=== PATIENT | female | born 1995 | race Caucasian/White ===

== ENCOUNTER 2016-09-09 12:37 | Emergency (ER) | payer OTHER ==
[~2016-09-09] VITALS: Ht 162.5 cm; Wt 50.3 kg
[~2016-09-09 12:37] MED LIST: AMOXICILLIN500 MG; ATARAX25 MG PO; CIPROFLOXACIN500 MG PO; CLEOCIN150 MG PO; KEFLEX500 MG PO; MACROBID100 M1 PO; MOTRIN400 MG PO; MOTRIN600 MG PO; MOTRIN800 MG PO; MULTIPLE VITAMI1 T17 PO; NKHM PO; PERCOCET 325 MG1 TA2 PO; PREDNICOT20 MG PO; PRENATAL1 TA7 PO; ULTRAM50 MG PO; VICODIN 500 MG-1 TAB PO; ZOFRAN ODT4 MG SL
[2016-09-09 12:42] VITALS: BP 122/80
== END 2016-09-09 14:03 | disposition home or self-care (01) ==
LOC: ED 12:37
DX: S70.02XA Contusion of left hip, initial encounter (principal); S80.02XA Contusion of left knee, initial encounter; F17.200 Nicotine dependence, unspecified, uncomplicated; Z88.8 Allergy status to other drugs, medicaments and biological substances; W18.39XA Other fall on same level, initial encounter; Y93.89 Activity, other specified; Y92.89 Other specified places as the place of occurrence of the external cause; Y99.8 Other external cause status

== ENCOUNTER 2016-09-22 09:52 | Emergency (ER) | payer OTHER ==
[~2016-09-22] VITALS: Ht 165.1 cm; Wt 52.2 kg
[2016-09-22 10:00] VITALS: BP 129/78
[2016-09-22] MEDS ORDERED: NEURONTIN300 MG PO (10:01)
[2016-09-22] MEDS ORDERED: BACTRIM DS 8001 TAB PO (10:43)
[2016-09-22] MEDS ORDERED: Motrin,Rufen800 MG PO (10:43)
== END 2016-09-22 11:09 | disposition home or self-care (01) ==
LOC: ED 09:52
DX: T24.201A Burn of second degree of unspecified site of right lower limb, except ankle and foot, initial encounter (principal); L03.115 Cellulitis of right lower limb; F17.200 Nicotine dependence, unspecified, uncomplicated; Z88.8 Allergy status to other drugs, medicaments and biological substances; X17.XXXA Contact with hot engines, machinery and tools, initial encounter; Y93.89 Activity, other specified; Y92.89 Other specified places as the place of occurrence of the external cause; Y99.9 Unspecified external cause status

== ENCOUNTER 2018-02-16 10:37 | Emergency (ER) | payer OTHER ==
[~2018-02-16] VITALS: Ht 165.1 cm; Wt 52.2 kg
[~2018-02-16 10:37] MED LIST changes: +BACTRIM DS 8001 TAB PO; +Motrin,Rufen800 MG PO; +NEURONTIN300 MG PO
[2018-02-16 10:39] VITALS: BP 113/67
== END 2018-02-16 12:12 | disposition home or self-care (01) ==
LOC: ED 10:37
DX: S63.502A Unspecified sprain of left wrist, initial encounter (principal); S63.92XA Sprain of unspecified part of left wrist and hand, initial encounter; F17.200 Nicotine dependence, unspecified, uncomplicated; Z88.8 Allergy status to other drugs, medicaments and biological substances; Z79.899 Other long term (current) drug therapy; W22.8XXA Striking against or struck by other objects, initial encounter; Y93.89 Activity, other specified; Y92.89 Other specified places as the place of occurrence of the external cause; Y99.8 Other external cause status

== ENCOUNTER 2019-01-04 10:35 | Emergency (ER) | payer OTHER ==
[~2019-01-04] VITALS: Wt 54.4 kg
[2019-01-04 10:38] VITALS: BP 110/70
[2019-01-04] MEDS ORDERED: ZYRTEC10 M3 PO (10:47)
[2019-01-04] MEDS ORDERED: CLARITIN10 MG PO (10:47)
[2019-01-04 11:49] LABS: BASO # 0.1 10*3/uL (0.0-0.1); BASO % 0.8 % (0.0-1.0); EOS # 0.5 10*3/uL (0.0-0.4); EOS % 4.1 % (1.0-4.0); HEMATOCRIT 40.8 % (37.0-47.0); HEMOGLOBIN 13.5 g/dl (12.0-16.0); LYMPH # 2.7 10*3/uL (1.3-4.4); LYMPH % 24.1 % (27.0-41.0); MEAN CELL VOLUME 96.7 fl (81.0-99.0); MEAN CORPUSCULAR HGB CONC 33.1 g/dl (33.0-37.0); MEAN PLATELET VOLUME 9.9 fl (9.6-12.3); MONO % 8.5 % (3.0-9.0); NEUT # 7.1 10*3/uL (2.3-7.9); NEUT % 62.1 % (47.0-73.0); PLATELET COUNT AUTOMATED 248 10*3/uL (130-400); RED BLOOD COUNT 4.22 10*6/uL (4.10-5.10); RED CELL DISTRI WIDTH 13.6 % (0-14.5); WHITE BLOOD COUNT 11.4 10*3/uL (4.8-10.8)
[2019-01-04 11:59] LABS: INTERNATIONAL NORM RATIO 0.9 (2.0-3.5)
[2019-01-04 12:03] LABS: ALBUMIN 3.6 gm/dl (3.1-4.5); ALKALINE PHOSPHATASE 82 U/L (45-117); BUN 8 mg/dl (7-24); CHLORIDE 108 mmol/L (98-107); CREATININE 0.83 mg/dL (0.55-1.02); POTASSIUM 4.1 mmol/L (3.5-5.1); SGOT/AST 8 IU/L (3-35); SGPT/ALT 22 U/L (12-78); SODIUM 139 mmol/L (136-145); TOTAL PROTEIN 6.5 gm/dL (6.4-8.2)
== END 2019-01-04 13:37 | disposition home or self-care (01) ==
LOC: ED 10:35
PROVIDERS: Nurse Practitioner Family
DX: S39.012A Strain of muscle, fascia and tendon of lower back, initial encounter (principal); S09.90XA Unspecified injury of head, initial encounter; H53.8 Other visual disturbances; R42 Dizziness and giddiness; F17.200 Nicotine dependence, unspecified, uncomplicated; Z88.8 Allergy status to other drugs, medicaments and biological substances; Z79.899 Other long term (current) drug therapy; W01.198A Fall on same level from slipping, tripping and stumbling with subsequent striking against other object, initial encounter; Y93.01 Activity, walking, marching and hiking; Y92.480 Sidewalk as the place of occurrence of the external cause; Y99.8 Other external cause status

== ENCOUNTER 2020-12-05 09:29 | Emergency (ER) | payer OTHER ==
[~2020-12-05] VITALS: Wt 68.0 kg
[~2020-12-05 09:29] MED LIST changes: +CLARITIN10 MG PO; +ZYRTEC10 M3 PO
[2020-12-05 09:37] VITALS: BP 127/75
[2020-12-05] MEDS ORDERED: PREDNISONE50 MG PO (11:20)
[2020-12-05] MEDS ORDERED: Fioricet 325 MG1 TAB PO (11:20)
== END 2020-12-05 11:28 | disposition home or self-care (01) ==
LOC: ED 09:29
DX: R51.9 Headache, unspecified (principal); Z88.6 Allergy status to analgesic agent; Z88.8 Allergy status to other drugs, medicaments and biological substances; Z79.899 Other long term (current) drug therapy; F17.200 Nicotine dependence, unspecified, uncomplicated

== ENCOUNTER 2020-12-17 10:24 | Emergency (ER) | payer OTHER ==
[~2020-12-17] VITALS: Wt 68.0 kg
[~2020-12-17 10:24] MED LIST changes: +Fioricet 325 MG1 TAB PO; +PREDNISONE50 MG PO
[2020-12-17 10:38] VITALS: BP 132/76
== END 2020-12-17 12:41 | disposition left against medical advice (07) ==
LOC: ED 10:24
DX: R21 Rash and other nonspecific skin eruption (principal); R51.9 Headache, unspecified; Z88.8 Allergy status to other drugs, medicaments and biological substances; Z79.899 Other long term (current) drug therapy

== ENCOUNTER 2020-12-23 21:43 | Emergency (ER) | payer OTHER ==
[~2020-12-23] VITALS: Ht 162.5 cm; Wt 68.0 kg
[2020-12-23 21:58] VITALS: BP 139/86
[2020-12-23] MEDS ORDERED: CEPHALEXIN500 M1 PO (22:34)
== END 2020-12-23 22:45 | disposition home or self-care (01) ==
LOC: ED 21:43
DX: R21 Rash and other nonspecific skin eruption (principal); Z88.6 Allergy status to analgesic agent; Z88.8 Allergy status to other drugs, medicaments and biological substances; Z79.899 Other long term (current) drug therapy

== ENCOUNTER → 2021-01-31 | Outpatient (CLI) | payer OTHER ==
[~2021-01-31] MED LIST changes: +CEPHALEXIN500 M1 PO
== END | disposition home or self-care (01) ==
LOC: COVID19 16:39
PROVIDERS: ATTEND Internal Medicine
DX: Z11.52 Encounter for screening for COVID-19 (principal)

== ENCOUNTER 2021-03-20 18:11 | Emergency (ER) | payer OTHER ==
[~2021-03-20] VITALS: Ht 165.1 cm; Wt 68.0 kg
[2021-03-20] MEDS ORDERED: CEPHALEXIN500 M1 PO (19:42)
[2021-03-20 19:57] VITALS: BP 126/82
== END 2021-03-20 19:59 | disposition home or self-care (01) ==
LOC: ED 18:11
DX: L03.116 Cellulitis of left lower limb (principal)

== ENCOUNTER 2021-03-28 06:18 | Emergency (ER) | payer OTHER ==
[~2021-03-28] VITALS: Ht 165.1 cm; Wt 68.0 kg
[2021-03-28 06:43] VITALS: BP 123/74
== END 2021-03-28 07:40 | disposition home or self-care (01) ==
LOC: ED 06:18
DX: F45.8 Other somatoform disorders (principal); Z20.822 Contact with and (suspected) exposure to COVID-19; Z88.6 Allergy status to analgesic agent; Z88.8 Allergy status to other drugs, medicaments and biological substances; Z79.899 Other long term (current) drug therapy

== ENCOUNTER 2021-04-15 19:23 | Emergency (ER) | payer OTHER ==
[2021-04-15 19:40] VITALS: BP 111/76
[2021-04-15] MEDS ORDERED: DOXEPIN HCL10 MG PO (19:41)
[2021-04-15] MEDS ORDERED: LAMICTAL100 MG PO (19:42)
[2021-04-15] MEDS ORDERED: GEODON60 MG PO (19:42)
[2021-04-15] MEDS ORDERED: CATAPRES-TTS 10.1 MG T (19:42)
== END 2021-04-15 20:20 | disposition left against medical advice (07) ==
LOC: ED 19:23
DX: R42 Dizziness and giddiness (principal); R11.0 Nausea; Z88.6 Allergy status to analgesic agent; Z88.8 Allergy status to other drugs, medicaments and biological substances; Z79.899 Other long term (current) drug therapy

== ENCOUNTER → 2021-07-16 | Outpatient (CLI) | payer OTHER ==
[~2021-07-16] MED LIST changes: +CATAPRES-TTS 10.1 MG T; +DOXEPIN HCL10 MG PO; +GEODON60 MG PO; +LAMICTAL100 MG PO
[2021-07-16 08:55] VITALS: BP 115/71
== END | disposition home or self-care (01) ==
LOC: INJECTION 08:30
PROVIDERS: ATTEND Internal Medicine
DX: N76.0 Acute vaginitis (principal)

== ENCOUNTER → 2021-10-22 | Outpatient (CLI) | payer OTHER ==
[2021-10-22 12:46] LABS: ALKALINE PHOSPHATASE 94 U/L (45-117); BUN 6 mg/dl (7-24); CHLORIDE 109 mmol/L (98-107); CREATININE 0.88 mg/dL (0.55-1.02); FREE T4 1.14 ng/dl (0.76-1.46); POTASSIUM 3.6 mmol/L (3.5-5.1); SGOT/AST 12 IU/L (3-35); SGPT/ALT 14 U/L (12-78); SODIUM 140 mmol/L (136-145); TOTAL PROTEIN 7.2 gm/dL (6.4-8.2)
[2021-10-22 12:52] LABS: THYROID STIM HORMONE (HS) 0.209 uIU/ml (0.358-4.75)
== END | disposition home or self-care (01) ==
LOC: LAB 12:11
PROVIDERS: ATTEND Internal Medicine
DX: R20.0 Anesthesia of skin (principal)

== ENCOUNTER 2021-11-17 12:39 | Emergency (ER) | payer OTHER ==
[~2021-11-17] VITALS: Wt 70.8 kg
[~2021-11-17 12:39] MED LIST changes: -CATAPRES-TTS 10.1 MG T; +CLONIDINE HCL0.2 MG PO; -GEODON60 MG PO; +GEODON80 MG PO; -LAMICTAL100 MG PO; +LAMICTAL200 MG PO
[2021-11-17 12:44] VITALS: BP 130/85
[2021-11-17 17:00] LABS: BASO # 0.1 10*3/uL (0.0-0.1); BASO % 0.6 % (0.0-1.0); EOS # 0.1 10*3/uL (0.0-0.4); EOS % 0.4 % (1.0-4.0); LYMPH # 3.5 10*3/uL (1.3-4.4); LYMPH % 21.9 % (27.0-41.0); MEAN CELL VOLUME 92.3 fl (81.0-99.0); MEAN CORPUSCULAR HGB 30.9 pg (27.0-31.0); MEAN CORPUSCULAR HGB CONC 33.5 g/dl (33.0-37.0); MEAN PLATELET VOLUME 9.5 fl (9.6-12.3); MONO # 1.2 10*3/uL (0.1-1.0); MONO % 7.4 % (3.0-9.0); NEUT # 11.2 10*3/uL (2.3-7.9); NEUT % 69.2 % (47.0-73.0); PLATELET COUNT AUTOMATED 476 10*3/uL (130-400); RED BLOOD COUNT 4.66 10*6/uL (4.10-5.10); RED CELL DISTRI WIDTH 13.2 % (0-14.5); WHITE BLOOD COUNT 16.1 10*3/uL (4.8-10.8)
[2021-11-17 17:18] LABS: ALKALINE PHOSPHATASE 90 U/L (45-117); BUN 10 mg/dl (7-24); CHLORIDE 105 mmol/L (98-107); CREATININE 0.85 mg/dL (0.55-1.02); POTASSIUM 3.4 mmol/L (3.5-5.1); SGOT/AST 16 IU/L (3-35); SGPT/ALT 29 U/L (12-78); SODIUM 137 mmol/L (136-145); TOTAL PROTEIN 7.2 gm/dL (6.4-8.2)
[2021-11-17] MEDS ORDERED: MEDROL DOSEPAK4 MG PO ×2 (17:27)
== END 2021-11-17 17:47 | disposition home or self-care (01) ==
LOC: ED 12:39
PROVIDERS: Physician Assistant
DX: R51.9 Headache, unspecified (principal); Z79.899 Other long term (current) drug therapy; Z91.040 Latex allergy status; Z88.6 Allergy status to analgesic agent; Z88.8 Allergy status to other drugs, medicaments and biological substances

== ENCOUNTER 2021-11-25 10:05 | Emergency (ER) | payer OTHER ==
[~2021-11-25] VITALS: Ht 165.1 cm; Wt 71.2 kg
[~2021-11-25 10:05] MED LIST changes: +MEDROL DOSEPAK4 MG PO
[2021-11-25 10:12] VITALS: BP 135/79
== END 2021-11-25 11:10 | disposition home or self-care (01) ==
LOC: ED 10:05
DX: M79.605 Pain in left leg (principal); M79.604 Pain in right leg; M79.672 Pain in left foot; M79.671 Pain in right foot; Z79.899 Other long term (current) drug therapy; Z91.040 Latex allergy status; Z88.6 Allergy status to analgesic agent; Z88.8 Allergy status to other drugs, medicaments and biological substances

== ENCOUNTER → 2022-04-06 | Outpatient (CLI) | payer OTHER ==
[2022-04-06 11:06] LABS: BASO % 0.6 % (0.0-1.0); EOS # 0.1 10*3/uL (0.0-0.4); HEMATOCRIT 45.2 % (37.0-47.0); LYMPH # 3.9 10*3/uL (1.3-4.4); LYMPH % 54.7 % (27.0-41.0); MEAN CELL VOLUME 89.2 fl (81.0-99.0); MEAN CORPUSCULAR HGB CONC 33.6 g/dl (33.0-37.0); MEAN PLATELET VOLUME 10.6 fl (9.6-12.3); MONO # 0.4 10*3/uL (0.1-1.0); NEUT # 2.7 10*3/uL (2.3-7.9); NEUT % 37.6 % (47.0-73.0); PLATELET COUNT AUTOMATED 290 10*3/uL (130-400); RED BLOOD COUNT 5.07 10*6/uL (4.10-5.10); RED CELL DISTRI WIDTH 12.8 % (0-14.5); WHITE BLOOD COUNT 7.2 10*3/uL (4.8-10.8)
[2022-04-06 11:48] LABS: ALKALINE PHOSPHATASE 86 U/L (46-116); CHLORIDE 103 mmol/L (98-107); CREATININE 0.67 mg/dL (0.55-1.02); POTASSIUM 3.3 mmol/L (3.4-5.1); SGPT/ALT 9 U/L (10-49); SODIUM 137 mmol/L (136-145); THYROID STIM HORMONE (HS) 1.115 uIU/ml (0.550-4.780); TOTAL PROTEIN 7.2 gm/dL (6.0-8.0)
[2022-04-06 11:49] LABS: BUN < 5 mg/dl (9-23)
== END | disposition home or self-care (01) ==
LOC: LAB 10:28
PROVIDERS: Psychiatry & Neurology Neurology; ATTEND Internal Medicine
DX: G43.119 Migraine with aura, intractable, without status migrainosus (principal)

== ENCOUNTER 2022-11-27 14:44 | Inpatient (IN) | payer OTHER ==
[~2022-11-27] VITALS: Ht 165.1 cm; Wt 78.5 kg
[2022-11-27 14:53] VITALS: BP 136/91
[2022-11-27] MEDS ORDERED: VRAYLAR4.5 MG PO (15:11)
[2022-11-27] MEDS ORDERED: PANTOPRAZOLE SO40 MG PO (15:12)
[2022-11-27] MEDS ORDERED: OMEPRAZOLE40 MG PO (15:12)
[2022-11-27 15:36] LABS: BASO # 0.1 10*3/uL (0.0-0.1); BASO % 0.6 % (0.0-1.0); EOS # 0.1 10*3/uL (0.0-0.4); EOS % 0.9 % (1.0-4.0); HEMATOCRIT 43.8 % (37.0-47.0); LYMPH # 3.3 10*3/uL (1.3-4.4); LYMPH % 26.2 % (27.0-41.0); MEAN CELL VOLUME 92.6 fl (81.0-99.0); MEAN CORPUSCULAR HGB 31.7 pg (27.0-31.0); MEAN CORPUSCULAR HGB CONC 34.2 g/dl (33.0-37.0); MEAN PLATELET VOLUME 8.8 fl (9.6-12.3); MONO # 0.8 10*3/uL (0.1-1.0); MONO % 6.6 % (3.0-9.0); NEUT # 8.2 10*3/uL (2.3-7.9); NEUT % 65.1 % (47.0-73.0); PLATELET COUNT AUTOMATED 431 10*3/uL (130-400); RED BLOOD COUNT 4.73 10*6/uL (4.10-5.10); RED CELL DISTRI WIDTH 13.2 % (0-14.5); WHITE BLOOD COUNT 12.7 10*3/uL (4.8-10.8)
[2022-11-27 15:46] LABS: ACT PARTIAL THROMBO TIME 31.2 SECONDS (20.0-32.1)
[2022-11-27 15:55] VITALS: BP 128/77
[2022-11-27 15:56] LABS: ALKALINE PHOSPHATASE 96 U/L (46-116); BETA-HCG, QUANT < 3.0 mIU/mL (3-10); BUN 7 mg/dl (9-23); CHLORIDE 104 mmol/L (98-107); POTASSIUM 3.5 mmol/L (3.4-5.1); SGPT/ALT 20 U/L (10-49); TOTAL PROTEIN 7.2 gm/dL (6.0-8.0)
[2022-11-27 16:00] VITALS: BP 128/77
[2022-11-27] MEDS ORDERED: NEURONTIN300 MG PO (16:16)
[2022-11-27 17:50] LABS: BILIRUBIN Negative (Negative); BLOOD Negative (Negative); CLARITY Turbid (Clear); COLOR Yellow (Yellow); GLUCOSE Negative (Negative); KETONE Negative (Negative); LEUKO ESTERASE Negative (Negative); NITRITE Negative (Negative); SPECIFIC GRAVITY 1.015 (1.001-1.030); UROBILINOGEN 0.2 E.U./dl (0.0-1.0)
[2022-11-27 17:57] LABS: URINE AMPHETAMINES Positive (1000ng/ml); URINE BARBITURATES Negative (200ng/ml); URINE BENZODIAZEPINES Negative (200ng/ml); URINE CANNABINOIDS (THC) Positive (50ng/ml); URINE COCAINE Negative (300ng/ml); URINE METHADONE Negative (300ng/ml); URINE OPIATES Negative (300ng/ml); URINE PHENCYCLIDINE Negative (25ng/ml)
[2022-11-27 18:12] LABS: BACTERIA TRACE; EPITHELIAL CELLS 16-20; RBC 0-2 rbc/hpf (0-2); WBC 0-2 wbc/hpf (0-5)
[2022-11-27 20:00] VITALS: BP 122/81
[2022-11-28 06:20] LABS: BASO # 0.1 10*3/uL (0.0-0.1); BASO % 0.6 % (0.0-1.0); EOS # 0.3 10*3/uL (0.0-0.4); EOS % 2.2 % (1.0-4.0); HEMATOCRIT 43.8 % (37.0-47.0); LYMPH # 4.8 10*3/uL (1.3-4.4); MEAN CELL VOLUME 93.6 fl (81.0-99.0); MEAN CORPUSCULAR HGB 31.4 pg (27.0-31.0); MEAN CORPUSCULAR HGB CONC 33.6 g/dl (33.0-37.0); MEAN PLATELET VOLUME 9.1 fl (9.6-12.3); MONO % 8.5 % (3.0-9.0); NEUT % 49.2 % (47.0-73.0); PLATELET COUNT AUTOMATED 433 10*3/uL (130-400); RED BLOOD COUNT 4.68 10*6/uL (4.10-5.10); RED CELL DISTRI WIDTH 13.6 % (0-14.5); WHITE BLOOD COUNT 12.3 10*3/uL (4.8-10.8)
[2022-11-28 07:30] LABS: VITAMIN D, 25-HYDROXY 20.7 ng/mL (30-100)
[2022-11-28 07:31] LABS: BUN 8 mg/dl (9-23); CHLORIDE 106 mmol/L (98-107); CHOLESTEROL 203 mg/dL (<200); FREE T4 1.26 ng/dl (0.89-1.76); LDL CHOLESTEROL 139 mg/dL (9-159); POTASSIUM 3.5 mmol/L (3.4-5.1); TRIGLYCERIDES 105 mg/dl (<150)
[2022-11-28 08:00] VITALS: BP 142/59
[2022-11-28 12:00] VITALS: BP 104/60
[2022-11-28 16:00] VITALS: BP 104/63
[2022-11-28 21:16] VITALS: BP 113/46
[2022-11-28 21:30] VITALS: BP 119/75
[2022-11-29 06:43] LABS: HEMATOCRIT 40.2 % (37.0-47.0); MEAN CELL VOLUME 93.1 fl (81.0-99.0); MEAN CORPUSCULAR HGB 31.9 pg (27.0-31.0); MEAN CORPUSCULAR HGB CONC 34.3 g/dl (33.0-37.0); MEAN PLATELET VOLUME 8.9 fl (9.6-12.3); PLATELET COUNT AUTOMATED 411 10*3/uL (130-400); RED BLOOD COUNT 4.32 10*6/uL (4.10-5.10); RED CELL DISTRI WIDTH 13.2 % (0-14.5); WHITE BLOOD COUNT 11.7 10*3/uL (4.8-10.8)
[2022-11-29 06:44] LABS: MANUAL DIFF REFLEX YES
[2022-11-29 07:02] LABS: PLATELET SUFFICIENCY HIGH (NORMAL); TOTAL CELLS COUNTED 100 #CELLS
[2022-11-29 07:03] LABS: ROULEAUX SLIGHT
[2022-11-29 07:07] LABS: BUN 10 mg/dl (9-23); CHLORIDE 105 mmol/L (98-107); POTASSIUM 3.4 mmol/L (3.4-5.1)
[2022-11-29 08:00] VITALS: BP 130/75
[2022-11-29 16:00] VITALS: BP 127/89
[2022-11-29 20:00] VITALS: BP 125/84
[2022-11-30 08:00] VITALS: BP 119/66
== END 2022-11-30 09:20 | disposition home or self-care (01) | DRG 776 ==
LOC: ED 14:44 → 4E 15:28 → EDHOLD 15:28 → 4E 15:38
PROVIDERS: Emergency Medicine; Student in an Organized Health Care Education/Training Program; ADMIT Student in an Organized Health Care Education/Training Program; ATTEND Student in an Organized Health Care Education/Training Program
DX: F15.23 Other stimulant dependence with withdrawal (principal); D75.839 Thrombocytosis, unspecified; K21.9 Gastro-esophageal reflux disease without esophagitis; R65.10 Systemic inflammatory response syndrome (SIRS) of non-infectious origin without acute organ dysfunction; R00.0 Tachycardia, unspecified; Z88.8 Allergy status to other drugs, medicaments and biological substances; F17.210 Nicotine dependence, cigarettes, uncomplicated; Z71.6 Tobacco abuse counseling; F41.9 Anxiety disorder, unspecified; D72.829 Elevated white blood cell count, unspecified; G40.909 Epilepsy, unspecified, not intractable, without status epilepticus; J45.909 Unspecified asthma, uncomplicated; R73.9 Hyperglycemia, unspecified; E55.9 Vitamin D deficiency, unspecified; E78.5 Hyperlipidemia, unspecified; F31.9 Bipolar disorder, unspecified; F43.10 Post-traumatic stress disorder, unspecified; G43.909 Migraine, unspecified, not intractable, without status migrainosus; Z91.040 Latex allergy status; Z83.3 Family history of diabetes mellitus; Z82.5 Family history of asthma and other chronic lower respiratory diseases

== ENCOUNTER → 2024-01-06 | Outpatient (CLI) | payer OTHER ==
[~2024-01-06] MED LIST changes: +OMEPRAZOLE40 MG PO; +PANTOPRAZOLE SO40 MG PO; +VRAYLAR4.5 MG PO
== END | disposition home or self-care (01) ==
LOC: WOUNDCARE 08:53
PROVIDERS: ATTEND Nurse Practitioner Family
DX: L98.9 Disorder of the skin and subcutaneous tissue, unspecified (principal); L91.8 Other hypertrophic disorders of the skin; K21.9 Gastro-esophageal reflux disease without esophagitis; F17.200 Nicotine dependence, unspecified, uncomplicated

== ENCOUNTER → 2024-10-27 | Outpatient (CLI) | payer OTHER | END | disposition home or self-care (01) | LOC: US 01:32 | PROVIDERS: ATTEND Internal Medicine | DX: K76.0 Fatty (change of) liver, not elsewhere classified (principal); R74.8 Abnormal levels of other serum enzymes ==

== ENCOUNTER → 2024-12-26 | Outpatient (CLI) | payer OTHER | LOC: RAD 11:42 | PROVIDERS: ATTEND Internal Medicine | DX: M25.562 Pain in left knee (principal) ==

== ENCOUNTER 2025-04-25 15:34 | Emergency (ER) | payer OTHER ==
[~2025-04-25] VITALS: Ht 162.5 cm; Wt 97.5 kg
[2025-04-25 15:44] VITALS: BP 134/84
[2025-04-25] MEDS ORDERED: Acetaminophen/Oxycodone 5 MG/325 MG TABLET PO ONE (16:05)
== END 2025-04-25 16:19 | disposition home or self-care (01) ==
LOC: ED 15:34
DX: M25.562 Pain in left knee (principal); G89.29 Other chronic pain; F12.90 Cannabis use, unspecified, uncomplicated; F17.210 Nicotine dependence, cigarettes, uncomplicated; Z90.89 Acquired absence of other organs; Z98.890 Other specified postprocedural states; Z91.040 Latex allergy status; Z88.6 Allergy status to analgesic agent; Z88.8 Allergy status to other drugs, medicaments and biological substances